=== PATIENT | female | born 2005 | race African-American/Black ===

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

== ENCOUNTER 2025-05-06 16:50 | Emergency (ER) | payer OTHER, SELFPAY ==
[2025-05-06 17:00] VITALS: BP 118/50; PULSE 70; RESP 18; TEMP 36.7; O2SAT 100
--- NOTE | 2025-05-06 17:03 | ED_ITS ---
HPI - Burn/Smoke Inhalation General Chief complaint: Skin/Abscess/Foreign Body Stated complaint: leg burn inf Time Seen by Provider: 05/06/25 17:10 Source: patient Mode of arrival: ambulatory Limitations: no limitations History of Present Illness HPI Narrative: Joann is a 20-year-old female patient presenting to the clinic today with complaints a burn to her leg x1 week. She reports she burned her leg with a heating blanket from [employer]. She reports it has become painful and red. She denies any fevers, chills, or body aches. Tetanus shot is unknown. Related Data Allergies Allergy/AdvReac Type Severity Reaction Status Date / Time No Known Allergies Allergy Verified 05/06/25 17:12 Review of Systems Review of Systems: Pertinent positives per HPI. Patient denies any fever, chills, rash, headache, visual changes, dizziness, cough, runny nose, sore throat, shortness of breath, chest pain, palpitations, nausea, vomiting, diarrhea, constipation, abdominal pain, or any urinary issues. PMFSH Comments At the time of my signature, I reviewed and agree with the nursing past medical, surgical, social, and family history. There is no relevant family history pertinent to the patient complaint. Exam Narrative: General: Well-developed, morbidly obese, in no apparent distress Head: Normocephalic, atraumatic. Cardio: Regular rate and rhythm, s1 and s2 normal, no murmur appreciated. Resp: Clear to auscultation bilaterally, no rhonchi, rales, wheezing or rubs. Integumentary: [place], warm, and dry, 2 x 1.5 cm open 2nd degree burn with localized redness/induration measuring 3 x 3 cm to the right lower leg, tenderness to palpation, no exudate expressed, no palpable abscess Course Course Level of Care: Express Care Visit MDM MDM Narrative Medical decision making narrative: At the time of visit patient is resting comfortably on the exam table. Patient appears to be nontoxic. Complaints a burn to her leg x1 week. She reports she burned her leg with a heating blanket from [employer]. She reports it has become painful and red. She denies any fevers, chills, or body aches. On exam patient has a 2 x 1.5 cm open 2nd degree burn with localized redness/induration measuring 3 x 3 cm to the right lower leg, tenderness to palpation, no exudate expressed, no palpable abscess. Tetanus is unknown Medications: Tdap 0.5 mL IM given in the clinic today Plan: I suspect patient has a 2nd degree burn to the right lower extremity with infection. Prescription for Cephalexin and mupirocin was sent to the pharmacy. Tetanus was updated in the clinic today Supportive measures were discussed with the patient and they voiced understanding discharge instructions and agrees to treatment plan. Return precautions reviewed Differential Diagnosis Differential Diagnosis: Differential diagnostic considerations for skin/abscess/foreign body issues include abscess of skin or subcutaneous tissue, viral exanthem, dermatophytosis, urticaria, herpes zoster, allergic reaction to drug, cellulitis, eczema, insect bites, impetigo, contact dermatitis, vasculitis. Discharge Plan Discharge Clinical Impression: Second degree burn of left leg, Wound infection Patient Disposition: Home Condition: Stable Instructions: Antibiotic Form, Wound Infection (ED), Second-Degree Burn (ED) Additional Instructions: Apply mupirocin cream to the affected area twice daily x7 day Take cephalexin as prescribed Keep wound clean and dry Watch for signs and symptoms of worsening infection- redness, streaking, swelling, purulent discharge, or increase in pain. Follow up with your PCP in 3 days for wound check Patient Language: Faroese Prescriptions: New cephalexin 500 mg capsule 500 mg PO Q8H 7 Days Qty: 21 0RF mupirocin [Centany] 2 % ointment 1 applic topical BID 7 Days Qty: 22 0RF Follow-up/Referrals: PHYSICIAN,SYSTEM CONFIGURATION SPECIALIST [Primary Care Provider, Internal Medicine] Time of Disposition: 17:10 Quality NIHSS Nursing Documentation ED NIHSS nursing documentation: reviewed/agree
[2025-05-06] MEDS: TETANUS,DIPHTHERIA,AC PERTUSSIS ADULT (0.5 ML) BOOSTRIX IM (17:26)
== END 2025-05-06 18:04 | disposition home or self-care (01) ==
PROVIDERS: Emergency Provider Nurse Practitioner Family
DX: T24.201A Burn of second degree of unspecified site of right lower limb, except ankle and foot, initial encounter (principal)
CPT/HCPCS: 90715; 99212; G0463